=== PATIENT | male | born 1990 | race Caucasian/White ===

== ENCOUNTER 2017-10-29 12:55 | Emergency (ER) | payer OTHER | END 2017-10-29 13:32 | disposition home or self-care (01) | LOC: E/R 12:55 | DX: M54.42 Lumbago with sciatica, left side (principal) | CPT/HCPCS: 99283; Z7502 ==

== ENCOUNTER 2018-02-06 12:26 | Emergency (ER) | payer OTHER | END 2018-02-06 13:05 | disposition home or self-care (01) | LOC: E/R 12:26 | DX: M54.6 Pain in thoracic spine (principal) | CPT/HCPCS: 71046; 99283-25 ==